=== PATIENT | female | born 1950 | race African-American/Black ===

== ENCOUNTER 2018-10-12 11:05 | Inpatient (IN) | payer OTHER, MEDICARE ==
[~2018-10-12] VITALS: Ht 170.2 cm; Wt 97.5 kg
[2018-10-12] MEDS ORDERED: SODIUM CHLORIDE 0.9% 1,000 ML IV ONE (11:30)
[2018-10-12] MEDS ORDERED: ONDANSETRON HCL 4MG/2ML INJ IV STA (11:30)
[2018-10-12] MEDS ORDERED: SODIUM CHLORIDE 0.9% 500 ML IV ONE (12:00)
[2018-10-12 12:03] LABS: CLARITY URINE CLEAR (CLEAR); COLOR URINE YELLOW (YELLOW); KETONES URINE NEGATIVE (NEGATIVE); LEUKOCYTE ESTERASE URINE TRACE (NEGATIVE); NITRITE URINE NEGATIVE (NEGATIVE); OCCULT BLOOD URINE TRACE (NEGATIVE); PROTEIN URINE NEGATIVE (NEGATIVE); SPECIFIC GRAVITY URINE 1.021 (1.005-1.030); UROBILINOGEN URINE 0.2 E.U./dL (0.2-1.0)
[2018-10-12 12:24] LABS: CHLORIDE 114 mEq/L (98-107)
[2018-10-12 12:30] LABS: BASOPHILS % 0.5 % (0.0-2.0); EOSINOPHILS % 0.2 % (0.0-5.0); LYMPHOCYTES % 18.3 % (20.0-50.0); MEAN CORPUSCULAR HEMOGLOBIN 24.7 pg (28.0-32.0); MEAN CORPUSCULAR VOLUME 79.3 fL (81.0-99.0); MEAN PLATELET VOLUME 8.4 fl (7.4-10.4); MONOCYTES % 4.4 % (2.0-8.0); NEUTROPHILS % 76.6 % (40.0-76.0); PLATELET 243 x1000/uL (130-400); RED CELL DISTRIBUTION WIDTH 19.9 % (11.6-14.6)
[2018-10-12 12:39] LABS: HEMATOCRIT. 20.6 % (36.0-48.0); HEMOGLOBIN. 6.4 g/dL (12.0-16.0)
[2018-10-12 12:47] LABS: INR 3.9; PARTIAL THROMBOPLASTIN TIME 36.2 sec (23.4-31.0); PROTHROMBIN TIME 37.9 sec (9.1-11.1)
[2018-10-12] MEDS ORDERED: IPRATROPIUM/ALBUTEROL 0.5-3(2.5)MG/3ML NEB INH PRN (13:15)
[2018-10-12] MEDS ORDERED: GUAIFENESIN 200MG/10ML SUGAR FREE UDC PO PRN (13:15)
[2018-10-12] MEDS ORDERED: LORAZEPAM 2MG/ML CPJ IV PRN (13:15)
[2018-10-12] MEDS ORDERED: CLONIDINE 0.1MG TABLET PO PRN (13:15)
[2018-10-12] MEDS ORDERED: ONDANSETRON HCL 4MG/2ML INJ IV PRN (13:15)
[2018-10-12] MEDS ORDERED: ACETAMINOPHEN 325MG TABLET PO PRN (13:15)
[2018-10-12] MEDS ORDERED: DOCUSATE SODIUM 100MG CAPSULE PO PRN (13:15)
[2018-10-12] MEDS ORDERED: MAGNESIUM/ALUMINUM HYDROXIDE/SIMETHICONE 30ML UDC PO PRN (13:15)
[2018-10-12] MEDS ORDERED: MORPHINE SULFATE 4 MG/ML CPJ (NOT FOR IM USE) IV PRN (13:15)
[2018-10-12 15:07] LABS: CHLORIDE 115 mEq/L (98-107)
[2018-10-12] MEDS ORDERED: FAMOTIDINE 20MG/2ML VIAL IV NR (17:45)
[2018-10-12] MEDS ORDERED: PHYTONADIONE 10 MG in DEXTROSE 5% WATER 50 ML IV NR (18:00)
[2018-10-12] MEDS: SODIUM CHLORIDE 0.45% 1,000 ML IV SCH (19:36)
[2018-10-12 20:00] VITALS: BP 93/53
[2018-10-12 20:50] VITALS: BP 99/63
[2018-10-12] MEDS ORDERED: NA PHOS,M-B/NA PHOS,DI-BA ENEMA 118ML PR PRN (21:00)
[2018-10-12 22:00] VITALS: BP 114/47
[2018-10-12 23:45] VITALS: BP 109/54
[2018-10-13] VITALS (29 sets, daily range): BP systolic 88–124; BP diastolic 41–93
[2018-10-13] MEDS: HYDROCODONE/ACETAMINOPHEN 5/325MG TABLET PO PRN ×3 (01:18→21:44)
[2018-10-13] MEDS ORDERED: ATOR10TA69 MT (05:43)
[2018-10-13] MEDS ORDERED: LOPHC2 MT (05:43)
[2018-10-13] MEDS ORDERED: SPIR25TA6 MT (05:43)
[2018-10-13] MEDS ORDERED: AMLO2.5T45 MT (05:43)
[2018-10-13] MEDS ORDERED: WARF-67 MT (05:43)
[2018-10-13] MEDS ORDERED: MIR25 MT (05:43)
[2018-10-13] MEDS ORDERED: HYDR-4001 PO (05:43)
[2018-10-13] MEDS ORDERED: DRON400T MT (05:43)
[2018-10-13] MEDS ORDERED: GLIP1TAB4 MT (05:43)
[2018-10-13 12:51] LABS: CHLORIDE 116 mEq/L (98-107)
[2018-10-13 12:53] LABS: INR 1.2
[2018-10-13 12:57] LABS: BASOPHILS % 0.3 % (0.0-2.0); EOSINOPHILS % 1.4 % (0.0-5.0); LYMPHOCYTES % 23.6 % (20.0-50.0); MEAN CORPUSCULAR HEMOGLOBIN 26.8 pg (28.0-32.0); MEAN CORPUSCULAR VOLUME 83.2 fL (81.0-99.0); MEAN PLATELET VOLUME 8.3 fl (7.4-10.4); MONOCYTES % 6.9 % (2.0-8.0); NEUTROPHILS % 67.8 % (40.0-76.0); PLATELET 164 x1000/uL (130-400); RED BLOOD CELL COUNT 2.37 mill/uL (4.2-5.4); RED CELL DISTRIBUTION WIDTH 18.4 % (11.6-14.6)
[2018-10-13 12:59] LABS: LDL CHOLESTEROL 50 mg/dL (5-100)
[2018-10-13] MEDS: SODIUM CHLORIDE 0.45% 1,000 ML IV SCH (13:00)
[2018-10-13 13:01] LABS: HDL CHOLESTEROL 37 mg/dL (40-59)
[2018-10-13 13:03] LABS: HEMATOCRIT. 19.7 % (36.0-48.0)
[2018-10-13 13:04] LABS: HEMOGLOBIN. 6.4 g/dL (12.0-16.0)
[2018-10-14] VITALS (11 sets, daily range): BP systolic 70–129; BP diastolic 44–69
[2018-10-14 01:33] LABS: HEMATOCRIT 25.2 % (36.0-48.0); HEMOGLOBIN 8.3 g/dL (12.0-16.0)
[2018-10-14 06:47] LABS: BASOPHILS % 0.3 % (0.0-2.0); EOSINOPHILS % 4.1 % (0.0-5.0); LYMPHOCYTES % 24.8 % (20.0-50.0); MEAN CORPUSCULAR HEMOGLOBIN 28.6 pg (28.0-32.0); MEAN CORPUSCULAR VOLUME 85.7 fL (81.0-99.0); MEAN PLATELET VOLUME 8.4 fl (7.4-10.4); MONOCYTES % 7.5 % (2.0-8.0); NEUTROPHILS % 63.3 % (40.0-76.0); PLATELET 156 x1000/uL (130-400); RED BLOOD CELL COUNT 2.92 mill/uL (4.2-5.4); RED CELL DISTRIBUTION WIDTH 17.5 % (11.6-14.6)
[2018-10-14 06:50] LABS: HEMOGLOBIN. 8.3 g/dL (12.0-16.0)
[2018-10-14 09:38] LABS: CHLORIDE 114 mEq/L (98-107)
[2018-10-14] MEDS ORDERED: PANTOPRAZOLE SODIUM 40 MG/VIAL IV SCH (13:30)
[2018-10-14] MEDS: SUCRALFATE 1 G/10 ML UDC PO SCH ×3 (14:11→21:09)
[2018-10-14 19:24] LABS: HEMATOCRIT 26.4 % (36.0-48.0); HEMOGLOBIN 8.8 g/dL (12.0-16.0)
== END 2018-10-14 22:00 | disposition short-term general hospital (02) | DRG 378 ==
LOC: ER 11:49 → 5EST 12:49 → EDBEDREQ 12:55 → EDBEDREQSVC 12:55 → EDBEDREQTM 12:55 → ENRESERV 15:20
PROVIDERS: ADMIT Internal Medicine; ATTEND Internal Medicine
PROC: 30233N1 Transfusion of Nonautologous Red Blood Cells into Peripheral Vein, Percutaneous Approach (ICD-10-PCS; principal; 2018-10-12)
DX: K92.1 Melena (principal); D68.9 Coagulation defect, unspecified; E87.2 Acidosis; D64.9 Anemia, unspecified; E11.9 Type 2 diabetes mellitus without complications; I11.0 Hypertensive heart disease with heart failure; I25.10 Atherosclerotic heart disease of native coronary artery without angina pectoris; I48.0 Paroxysmal atrial fibrillation; I95.9 Hypotension, unspecified; I50.9 Heart failure, unspecified; T45.515A Adverse effect of anticoagulants, initial encounter; E86.0 Dehydration; Z79.01 Long term (current) use of anticoagulants; Z79.899 Other long term (current) drug therapy; Z87.11 Personal history of peptic ulcer disease; Z88.9 Allergy status to unspecified drugs, medicaments and biological substances
CPT/HCPCS: 36415; 71045; 80048; 80061; 82248; 82962; 83605; 83735; 83880; 84439; 84443; 84484; 85014; 85018; 86850; 86900; 86920; 93005; 93306; 96361; 96374; 99291; C9113; J2270; J2405; J3430; J3490; J7030; J7040; J7050; J7060; P9016